=== PATIENT | male | born 1950 | race Caucasian/White ===

== ENCOUNTER 2022-02-03 09:17 | Emergency (ER) | payer MEDICARE, OTHER, SELFPAY ==
[2022-02-03 09:22] VITALS: BP 132/74; PULSE 102; RESP 20; TEMP 37.3; O2SAT 100
--- NOTE | 2022-02-03 09:23 | ED.NAVMDI ---
HPI - Nausea/Vomiting/Diarrhea General Chief complaint: Nausea/Vomiting/Diarrhea Stated complaint: headache aches diarhhea Time Seen by Provider: 02/03/22 09:22 Source: patient and RN notes reviewed History of Present Illness HPI Narrative: Patient is a 71-year-old male who presents the urgent care with complaints of diffuse abdominal discomfort, diarrhea, body aches and headache. Patient states that he was on a cruise and started to have symptoms on Thursday. Patient states that when he returned back from the cruise and his was also symptomatic. Patient states that his symptoms have improved and he is still having 2-3 loose stools a day with taking Imodium. Patient states the pain got worse on Thursday. Denies of any nausea or vomiting. Patient denies any diverticulitis or colitis. States that he has had a low-grade temp since yesterday. Patient has been able to keep down fluids but states he has not tried to eat since Thursday. Patient also reports an increase in urination no other acute complaints. No acute distress noted. Patient aware of the plan of care. Some parts of this dictation were generated by voice recognition software and may contain typographical and/or grammatical inaccuracies. Related Data Home Medications Medication Instructions Recorded Confirmed amlodipine 10 mg tablet 10 mg PO DAILY 02/03/22 02/03/22 finasteride 5 mg tablet 5 mg PO DAILY 02/03/22 02/03/22 pantoprazole 40 mg tablet,delayed 40 mg PO DAILY 02/03/22 02/03/22 release tamsulosin 0.4 mg capsule 0.4 mg PO DAILY 02/03/22 02/03/22 Allergies Allergy/AdvReac Type Severity Reaction Status Date / Time No Known Allergies Allergy Unknown Verified 02/03/22 09:37 Review of Systems Review of Systems: CONSTITUTIONAL: Reports a fever EYES: Denies visual changes, redness, or discharge. ENT: Denies rhinorrhea, congestion, sore throat, or otalgia. CARDIOVASCULAR: Denies chest pain, palpitations, or edema. RESPIRATORY: Denies cough or dyspnea. GASTROINTESTINAL: Reports of diarrhea and diffuse abdominal tenderness/pains GENITOURINARY: Reports of urinary frequency SKIN: Denies rash or itching. MUSCULOSKELETAL: Denies back pain, joint pain. Reports of body aches NEUROLOGIC: Reports of headache All other systems reviewed are negative, except as documented in HPI. PMFSH Comments At the time of my signature, I reviewed and agree with the nursing past medical, surgical, social, and family history. There is no relevant family history pertinent to the patient complaint. Exam Narrative: GENERAL: This is a well-nourished, well-developed patient. Appears fatigued HEAD: normocephalic, atraumatic. EYES: PERRL. Sclera clear/white. Vision is grossly intact. EARS: External ears normal, auditory canals clear and without drainage, TMs normal without perforation. Hearing grossly intact. NOSE: External nose normal with no obvious nasal discharge, nares without redness, no rhinorrhea. THROAT: Mucous membranes moist, posterior pharynx clear. NECK: Neck supple CARDIOVASCULAR: Regular rate and rhythm without murmurs, gallops, or rubs. RESPIRATORY: Clear to auscultation. Breath sounds equal bilaterally. No wheezes, rales, or rhonchi. GASTROINTESTINAL: Abdomen soft, diffuse abdominal tenderness, nondistended. Bowel sounds are hyperactive. No guarding SKIN: warm, intact with no suspicious lesions or rash, good texture and turgor. NEURO: awake, alert, and oriented to person, place and time. There were no obvious focal neurologic abnormalities. EXTREMITIES: No clubbing, cyanosis, or edema. Course Course Level of Care: Express Care Visit Vital Signs Vital signs: Vital Signs Temperature 99.2 F 02/03/22 09:22 Pulse Rate 102 H 02/03/22 09:22 Respiratory Rate 20 02/03/22 09:22 Blood Pressure 132/74 02/03/22 09:22 Pulse Oximetry 100 02/03/22 09:22 Oxygen Delivery Room Air 02/03/22 09:22 Temperature 99.2 F 02/03/22 09:22 Pulse Rate 102 H
== END 2022-02-03 10:10 | disposition short-term general hospital (02) ==
PROVIDERS: Emergency Provider Nurse Practitioner Family; PCP Internal Medicine
DX: R10.9 Unspecified abdominal pain (principal); R19.7 Diarrhea, unspecified; Z20.822 Contact with and (suspected) exposure to COVID-19; I10 Essential (primary) hypertension; K21.9 Gastro-esophageal reflux disease without esophagitis
CPT/HCPCS: 81003; 87077; 87086; 87186; 87426; 99213; C9803; G0463

== ENCOUNTER 2022-07-22 08:02 | Emergency (ER) | payer MEDICARE, OTHER, SELFPAY ==
[2022-07-22 08:08] VITALS: BP 122/77; PULSE 78; RESP 20; TEMP 37.2; O2SAT 100
--- NOTE | 2022-07-22 08:09 | ED.URI ---
HPI - URI/Sore Throat General Chief Complaint: Upper Respiratory Infection Stated Complaint: Chest Congestion/Headache Time Seen by Provider: 07/22/22 08:09 Source: patient, RN notes reviewed and old records reviewed Mode of arrival: ambulatory Limitations: no limitations History of Present Illness HPI Narrative: 72 year old male who presents to express care with complaints of And is congestion and drainage for 11-14 days. Patient has facial pressure, bilateral sinus region discomfort, he has thick sinus drainage, denies any fevers, he does have forehead pain also. Patient has been taking NyQuil, DayQuil, and Coricidin brand decongestant. Patient denies any shortness of breath does have occasional cough which is dry, no tachypnea or any accessory muscle use, SAO2 100% on room air.. MD elicited complaint: cough, rhinorrhea, nasal congestion and sinus pain Pertinent past history: sinusitis Onset (ago): day(s) (11-14) Pain scale (0-10): 2 Treatments prior to arrival: cold medicine and other (Coricidin brand decogestant) Related Data Home Medications Medication Instructions Recorded Confirmed amlodipine 10 mg tablet 10 mg PO DAILY 02/03/22 07/22/22 finasteride 5 mg tablet 5 mg PO DAILY 02/03/22 07/22/22 pantoprazole 40 mg tablet,delayed 40 mg PO DAILY 02/03/22 07/22/22 release tamsulosin 0.4 mg capsule 0.4 mg PO DAILY 02/03/22 07/22/22 Allergies Allergy/AdvReac Type Severity Reaction Status Date / Time No Known Allergies Allergy Unknown Verified 02/03/22 09:37 Review of Systems Review of Systems: CONSTITUTIONAL: Denies malaise, chills, sweats, or fever. EYES: Denies visual changes, redness, or discharge. ENT: Reports rhinorrhea, congestion, sinus pain, otalgia denies sore throat. CARDIOVASCULAR: Denies chest pain, palpitations, or edema. RESPIRATORY: Reports occasional cough.? Denies dyspnea. GASTROINTESTINAL: Denies abdominal pain, nausea, vomiting, diarrhea SKIN: Denies rash or itching. MUSCULOSKELETAL: Denies myalgia. NEUROLOGIC: Reports frontal headache. All systems reviewed & are unremarkable except as noted in HPI and below PMFSH Past Medical History Medical History (Updated 07/22/22 @ 08:38 by Isidra Harvey NP) GERD (gastroesophageal reflux disease) Hypertension Kidney stone Pelvis fracture external fixator (trauma) Surgical History Surgical History (Updated 07/22/22 @ 08:40 by Isidra Harvey NP) H/O right inguinal hernia repair H/O ventral hernia repair Family History Family History (Updated 07/22/22 @ 08:38 by Isidra Harvey NP) Mother Hypertension Heart disease Father Heart disease Social History Social History (Updated 07/22/22 @ 08:26 by Isidra Harvey NP) Alcohol intake: current Substance use type: does not use Gender identity (if verbalized by the patient): Male Comments At time of signature, agree with nursing past medical, surgical, social and family history. There is no relevant family history pertinent to the presenting complaint Exam Narrative: GENERAL: Well-appearing, well-nourished, and in no acute distress. HEAD: Normocephalic EYES: PERRLA, conjunctivae clear ENT: Nares clear, turbinates edematous and erythematous, clear to white discharge. Mucous membranes moist. TM pearly becerril with dull light reflex bilaterally; no tragal tenderness. Oropharynx erythematous without lesions. Tonsils not enlarged and without exudate, no drooling, no hoarseness, no trismus, uvula midline, post nasal drainage. NECK: Supple. No lymphadenopathy CHEST: Clear to auscultation, breath sounds equal. No wheezing, rhonchi, rales, or stridor. No respiratory distress, speaks in full sentences.occasional dry cough,SAO2 100% on room air HEART: Regular rate and rhythm. No murmur heard. SKIN: Warm, dry, no rash. NEURO: Alert and oriented x3. PSYCH: Normal mood and affect Course Course Emergency Course: Patient is aware of diagnosis, und
== END 2022-07-22 08:35 | disposition home or self-care (01) ==
PROVIDERS: Emergency Provider Registered Nurse; PCP Internal Medicine
DX: J01.90 Acute sinusitis, unspecified (principal); K21.9 Gastro-esophageal reflux disease without esophagitis; I10 Essential (primary) hypertension
CPT/HCPCS: 99213; G0463

== ENCOUNTER 2022-11-17 06:59 | Outpatient (CLI) | payer MEDICARE, OTHER, SELFPAY ==
[2022-11-17 07:11] LABS: Basophils Absolute Auto 0.05 K/mm3 (0.00-0.10); Basophils Percent Auto 0.9 % (0.0-1.0); Eosinophils Absolute Auto 0.15 K/mm3 (0.02-0.50); Eosinophils Percent Auto 2.8 % (1.0-6.0); Hematocrit 43.4 % (37.0-46.0); Hemoglobin 14.4 g/dL (12.4-15.3); Immature Granulocyte Absolute 0.01 K/mm3 (0.00-0.00); Immature Granulocyte Percent A 0.2 % (0.0-0.0); Lymphocytes Absolute Auto 1.26 K/mm3 (1.10-4.50); Lymphocytes Percent Auto 23.4 % (18.0-42.0); Mean Corpuscular HGB Conc 33.2 g/dL (32.0-36.0); Mean Corpuscular Hemoglobin 30.6 pg (27.0-31.0); Mean Corpuscular Volume 92.3 fL (78.0-102.0); Mean Platelet Volume 9.6 fl (8.7-11.0); Monocytes Absolute Auto 0.62 K/mm3 (0.10-0.90); Monocytes Percent Auto 11.5 % (2.0-11.0); Neutrophils Absolute Auto 3.3 K/mm3 (1.7-7.2); Neutrophils Percent Auto 61.2 % (50.0-70.0); Platelet Count Result 150 K/mm3 (150-420); Red Cell Distribution Width 14.2 % (11.6-14.4); White Blood Count 5.4 K/mm3 (4.8-10.8)
[2022-11-17 08:33] LABS: Alanine Aminotransferase 31 U/L (16-63); Albumin Level 3.7 g/dL (3.4-5.0); Alkaline Phosphatase 90 U/L (46-116); Anion Gap 6 mmol/L (8-16); Aspartate Amino Transferase 23 U/L (15-37); Bilirubin,Total 0.6 mg/dL (0.00-1.00); Blood Urea Nitrogen 12 mg/dL (7-18); Calcium 8.2 mg/dL (8.5-10.1); Carbon Dioxide 30 mmol/L (21-32); Chloride 103 mmol/L (98-108); Cholesterol 157 mg/dL (0-200); Estimated Glomerular Filt Rate > 60; Free T4 Free Thyroxine 0.96 ng/dL (0.76-1.46); Glucose 115 mg/dL (70-99); HDL Direct 41 mg/dL (40-60); LDL Cholesterol Calculated 86 mg/dL (<130); Osmolality Calculated 288 mOsm/kg (285-295); Potassium 4.2 mmol/L (3.5-5.1); Sodium 139 mmol/L (136-145); Total Protein 6.9 g/dL (6.4-8.2); Triglycerides 151 mg/dL (0-150)
== END 2022-11-17 07:00 | disposition home or self-care (01) ==
LOC: CHSLAB 07:01
PROVIDERS: PCP Internal Medicine; Visit Provider Internal Medicine
DX: I10 Essential (primary) hypertension (principal); E78.5 Hyperlipidemia, unspecified
CPT/HCPCS: 36415; 80053; 80061; 84439; 85025

== ENCOUNTER 2023-07-02 12:07 | Outpatient (CLI) | payer MEDICARE, OTHER, SELFPAY ==
--- NOTE | ~2023-07-02 | XR_ITS ---
EXAMINATION: XR chest 2V 07/02/2023 12:44 INDICATION: Chest tightness PROCEDURE: 2 view chest COMPARISON: 03/19/2019 FINDINGS: The lungs are clear. The cardiomediastinal silhouette is within normal limits. There are no pleural effusions. There is no pneumothorax suspected. IMPRESSION: 1: NO ACUTE CARDIOPULMONARY DISEASE. Reviewed, dictated and finalized at [facility]. 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
--- NOTE | ~2023-07-02 | CT_ITS ---
EXAMINATION: CTA chest PE protocol DATE: 07/02/2023 15:14 INDICATION: Chest pain and shortness of breath. Elevated d-dimer. TECHNIQUE: Computed tomography angiography (CTA) of the chest was performed with 100 mL Omnipaque-350 intravenous contrast timed to evaluate the pulmonary arteries. Coronal maximum intensity projection 3D-reconstructions were created by the technologist. Automated exposure control and iterative reconst ruction technique were employed. Exam dose: 304.69 mGy-cm total exam COMPARISON: 07/02/2023 PA and lateral chest FINDINGS: There is diagnostic contrast enhancement of the pulmonary arteries and no evidence of pulmo nary embolism. No thoracic aortic aneurysm or dissection. Normal heart size. No hilar or mediastinal mass lesion or lymphadenopathy. No pericardial or pleural effusion. Mild bilateral apical pulmonary scarring. Likely chronic interlobular septal thickening and honeycomb ing in the lower anterior right lung affecting middle and lower lobes. There is discoid atelectasis o r scarring at the posterior lung bases, left greater than right. No pulmonary consolidation. Normal morphology of the adrenal glands. 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 IMPRESSION: No evidence of pulmonary embolism Reviewed, dictated and finalized at [facility]. COMPARISON: None. FINDINGS: IMPRESSION: Reviewed, dictated and finalized at [facility]. Reviewed, dictated and finalized at [facility]. 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
[2023-07-02 12:33] LABS: Basophils Absolute Auto 0.06 K/mm3 (0.00-0.10); Basophils Percent Auto 0.8 % (0.0-1.0); Eosinophils Absolute Auto 0.16 K/mm3 (0.02-0.50); Eosinophils Percent Auto 2.1 % (1.0-6.0); Hematocrit 43.7 % (37.0-46.0); Hemoglobin 14.1 g/dL (12.4-15.3); Immature Granulocyte Absolute 0.03 K/mm3 (0.00-0.00); Immature Granulocyte Percent A 0.4 % (0.0-0.0); Lymphocytes Absolute Auto 1.38 K/mm3 (1.10-4.50); Mean Corpuscular HGB Conc 32.3 g/dL (32.0-36.0); Mean Corpuscular Hemoglobin 29.5 pg (27.0-31.0); Mean Corpuscular Volume 91.4 fL (78.0-102.0); Mean Platelet Volume 9.5 fl (8.7-11.0); Monocytes Absolute Auto 0.84 K/mm3 (0.10-0.90); Neutrophils Absolute Auto 5.2 K/mm3 (1.7-7.2); Neutrophils Percent Auto 67.7 % (50.0-70.0); Platelet Count Result 183 K/mm3 (150-420); Red Blood Count 4.78 M/mm3 (4.70-6.10); Red Cell Distribution Width 14.8 % (11.6-14.4); White Blood Count 7.7 K/mm3 (4.8-10.8)
[2023-07-02 12:45] LABS: Appearance Urine Clear (Clear); Bilirubin Urine Negative (Negative); Color Urine Light Yellow (Yellow); Glucose Urine UA Negative (Negative); Ketones Urine Negative (Negative); Leukocyte Esterase Ur Negative (Negative); Nitrate Urine Negative (Negative); Protein Urine Negative (Negative); Specific Grav Ur 1.015 (1.010-1.020)
[2023-07-02 12:51] LABS: Add Urine Microscopic? YES; Bacteria Urine Rare /hpf; Blood Urine Trace-lysed (Negative); RBC Urine 0-2 /hpf (0-2); WBC Urine None seen /hpf (0-3)
[2023-07-02 13:01] LABS: D Dimer 1.03 mg/L (0.19-0.50)
[2023-07-02 13:29] LABS: Alanine Aminotransferase 38 U/L (16-63); Albumin Level 3.7 g/dL (3.4-5.0); Alkaline Phosphatase 67 U/L (46-116); Anion Gap 10 mmol/L (8-16); Aspartate Amino Transferase 25 U/L (15-37); Bilirubin,Total 0.5 mg/dL (0.00-1.00); Blood Urea Nitrogen 15 mg/dL (7-18); Calcium 8.3 mg/dL (8.5-10.1); Carbon Dioxide 27 mmol/L (21-32); Chloride 101 mmol/L (98-108); Cholesterol 180 mg/dL (0-200); Creatine Kinase 257 U/L (39-308); Estimated Glomerular Filt Rate > 60; Glucose 100 mg/dL (70-99); HDL Direct 48 mg/dL (40-60); LDL Cholesterol Calculated 93 mg/dL (<130); NT Pro B Type Natriuretic Pept 98 pg/mL (0-125); Osmolality Calculated 286 mOsm/kg (285-295); Potassium 4.1 mmol/L (3.5-5.1); Prostate Specific Antigen 1.3 ng/mL (< OR = 4.0); Sodium 138 mmol/L (136-145); Total Protein 6.9 g/dL (6.4-8.2); Triglycerides 196 mg/dL (0-150); Troponin I 8.1 ng/L (0.00-60.4)
[2023-07-03 11:59] LABS: CRP 0.5 mg/dL (0.0-0.9)
== END 2023-07-02 12:08 | disposition home or self-care (01) ==
PROVIDERS: PCP Internal Medicine; Visit Provider Internal Medicine
DX: R07.9 Chest pain, unspecified (principal); Z12.5 Encounter for screening for malignant neoplasm of prostate; R79.1 Abnormal coagulation profile; R06.02 Shortness of breath
CPT/HCPCS: 36415; 71046; 71275; 80053; 80061; 81001; 82550; 82553; 83880; 84153; 84484; 85025; 85380; 86140; G0103; Q9967

== ENCOUNTER 2023-07-29 00:27 | Day surgery (SDC) | payer MEDICARE, OTHER, SELFPAY ==
[2023-07-21 09:57] VITALS: BMI 23.9
--- NOTE | 2023-07-27 11:12 | SUR.PREOP ---
Patient called regarding upcoming procedure. Reviewed preop instructions, appointment times, and procedure prep.
--- NOTE | 2023-07-28 13:29 | PM.HPGS ---
History of Present Illness History of Present Illness Consent: Risks, benefits, and alternatives have been discussed and questions answered. Patient agrees to proceed with procedure. Chief complaint: Chest Pain,atypical Narrative: Robert Garcia is a 73 year old male Referred for investigation of atypical chest pain. Review of Systems Review of Systems: All systems reviewed & are unremarkable except as noted in HPI and below PMFSH Past Medical History Medical History GERD (gastroesophageal reflux disease) Hypertension Kidney stone Pelvis fracture external fixator (trauma) Surgical History Surgical History H/O right inguinal hernia repair H/O ventral hernia repair Family History Family History Mother Hypertension Heart disease Father Heart disease Social History Social History Alcohol intake: current Substance use type: does not use Gender identity (if verbalized by the patient): Male Spiritual care concerns: No Meds Home Medications and Allergies Home Medications Medication Instructions Recorded Confirmed Type amlodipine 10 mg tablet 10 mg PO DAILY 02/03/22 07/29/23 History finasteride 5 mg tablet 5 mg PO DAILY 02/03/22 07/29/23 History pantoprazole 40 mg tablet,delayed 40 mg PO DAILY 02/03/22 07/29/23 History release tamsulosin 0.4 mg capsule 0.4 mg PO DAILY 02/03/22 07/29/23 History aspirin 81 mg capsule 81 mg PO DAILY 07/21/23 07/29/23 History Allergies Allergy/AdvReac Type Severity Reaction Status Date / Time No Known Allergies Allergy Unknown Verified 07/29/23 06:59 Exam Const: General: alert Orientation/consciousness: patient oriented x3 Resp: Auscultation: clear to auscultation bilaterally Cardio: Rhythm: regular rhythm GI: GI Palp: Yes Soft to palpation and No Tenderness to palpation present (GI) Neuro: General: patient oriented x3 Assessment and Plan Assessment and plan (1) Chest pain: Code(s): R07.9 - Chest pain, unspecified Status: Acute Assessment and Plan: EGD with possible biopsy or dilatation or cautery.
[2023-07-29 07:02] VITALS: BP 133/74; PULSE 63; RESP 16; TEMP 36.6; O2SAT 100
[2023-07-29] MEDS: LACTATED RINGERS 1,000 ML 150 ML IV CONT (07:14)
--- NOTE | 2023-07-29 07:35 | WPDANESEPPF ---
Anes - Initial Pre Proc Eval Procedure: Operation Date: 07/29/23 08:00 Proposed Procedures p Esophagogastroduodenoscopy - Paul Geiger MD Date/Time: 07/29/23 07:35 Surgeon: Paul Geiger MD Pre Op Diagnosis: Chest Pain,atypical Patient Data Age: 73 Gender: M Height: 1.83 m Weight: 77.9 kg Last Vital Signs Temp 97.8 F 07/29/23 07:02 Pulse 63 07/29/23 07:02 Resp 16 07/29/23 07:02 BP 133/74 07/29/23 07:02 Pulse Ox 100 07/29/23 07:02 O2 Del Method Room Air 07/29/23 07:02 Allergies Allergy/AdvReac Type Severity Reaction Status Date / Time No Known Allergies Allergy Unknown Verified 07/29/23 06:59 Home Medications Medication Instructions Recorded Confirmed Type amlodipine 10 mg tablet 10 mg PO DAILY 02/03/22 07/29/23 History finasteride 5 mg tablet 5 mg PO DAILY 02/03/22 07/29/23 History pantoprazole 40 mg tablet,delayed 40 mg PO DAILY 02/03/22 07/29/23 History release tamsulosin 0.4 mg capsule 0.4 mg PO DAILY 02/03/22 07/29/23 History aspirin 81 mg capsule 81 mg PO DAILY 07/21/23 07/29/23 History Patient hx anesthesia problems: none Family hx anesthesia problems: none Results Review: All pre-operative results and documents have been reviewed as part of the pre-operative evaluation. [facility] Past Medical History Medical History GERD (gastroesophageal reflux disease) Hypertension Kidney stone Pelvis fracture external fixator (trauma) Surgical History Surgical History H/O right inguinal hernia repair H/O ventral hernia repair Family History Family History Mother Hypertension Heart disease Father Heart disease Social History Social History Alcohol intake: current Substance use type: does not use Gender identity (if verbalized by the patient): Male Spiritual care concerns: No Anes - Eval Final PreProcedure Day of Procedure 07/29/23 07:35 Patient weight: normal Heart: regular rate and rhythm Lungs: clear to auscultation Airway: Mallampati scale class II Neurological: alert and oriented Last oral intake: >/= 8 hours ASA classification: II Emergent: no Anesthetic plan: proceed Anesthesia type and monitoring: general GIVS and standard monitoring Results Review: All pre-operative results and documents have been reviewed as part of the pre-operative evaluation. Informed Consent: The patient's anesthetic plan and its attendant risks and benefits were discussed with the patient/family/POA. Questions were solicited and answers provided to the satisfaction of the patient/family/POA.
[2023-07-29] MEDS: SIMETHICONE ORAL SUSPENSION 20 MG/0.3 ML 30 ML BOTTLE 0.6 ML IRRIGATION (07:55)
[2023-07-29 08:00] VITALS: BP 110/68; PULSE 63; RESP 24; O2SAT 99
[2023-07-29 08:10] VITALS: BP 113/74; PULSE 61; RESP 15; O2SAT 98
[2023-07-29 08:20] VITALS: BP 117/74; PULSE 63; RESP 23; O2SAT 100
== END 2023-07-29 08:30 | disposition home or self-care (01) ==
PROVIDERS: PCP Internal Medicine; Visit Provider Internal Medicine Gastroenterology
PROC: 0DJ08ZZ Inspection of Upper Intestinal Tract, Via Natural or Artificial Opening Endoscopic (ICD-10-PCS; CPT 43235; principal; 2023-07-29 08:00)
DX: K21.9 Gastro-esophageal reflux disease without esophagitis (principal); I10 Essential (primary) hypertension; Z79.82 Long term (current) use of aspirin
CPT/HCPCS: 43235; J2704; J7120

== ENCOUNTER 2024-02-21 08:01 | Emergency (ER) | payer MEDICARE, OTHER, SELFPAY ==
[2024-02-21 08:08] VITALS: BP 133/76; PULSE 71; RESP 20; TEMP 36.6; O2SAT 100
--- NOTE | 2024-02-21 08:12 | ED.URI ---
HPI - URI/Sore Throat General Chief Complaint: Upper Respiratory Infection Stated Complaint: cold/right ear Time Seen by Provider: 02/21/24 08:12 Source: patient, RN notes reviewed and old records reviewed Mode of arrival: ambulatory Limitations: no limitations History of Present Illness HPI Narrative: 73 year old male presents to [facility] care with complaints of cough for the past 3 weeks and right ear has been felt clogged with some pain, nasal congestion and drainage. for the past 2-3 weeks. Patient reports that he has taken some DayQuil and NyQuil for his symptoms with no resolution of his symptoms. MD elicited complaint: cough, rhinorrhea, nasal congestion and other (right ear pain) Onset (ago): week(s) (weeks cough ) Severity: moderate Treatments prior to arrival: other (DayQuil and NyQuil) Related Data Home Medications Medication Instructions Recorded Confirmed amlodipine 10 mg tablet 10 mg PO DAILY 02/03/22 07/29/23 finasteride 5 mg tablet 5 mg PO DAILY 02/03/22 07/29/23 pantoprazole 40 mg tablet,delayed 40 mg PO DAILY 02/03/22 07/29/23 release tamsulosin 0.4 mg capsule 0.4 mg PO DAILY 02/03/22 07/29/23 aspirin 81 mg capsule 81 mg PO DAILY 07/21/23 07/29/23 Allergies Allergy/AdvReac Type Severity Reaction Status Date / Time No Known Allergies Allergy Unknown Verified 07/29/23 06:59 Review of Systems Review of Systems: CONSTITUTIONAL: Denies malaise, chills, sweats, or fever. EYES: Denies visual changes, redness, or discharge. ENT: Reports rhinorrhea, congestion,no sinus pain,right otalgia and no sore throat. CARDIOVASCULAR: Denies chest pain, palpitations, or edema. RESPIRATORY: Reports persistent cough.? Denies dyspnea. GASTROINTESTINAL: Denies abdominal pain, nausea, vomiting, diarrhea SKIN: Denies rash or itching. MUSCULOSKELETAL: Denies myalgia. NEUROLOGIC: Denies headache. All systems reviewed & are unremarkable except as noted in HPI and below PMFSH Past Medical History Medical History BPH (benign prostatic hyperplasia) GERD (gastroesophageal reflux disease) Hypertension Kidney stone Pelvis fracture external fixator (trauma) Surgical History Surgical History H/O right inguinal hernia repair H/O ventral hernia repair Family History Family History Mother Hypertension Heart disease Father Heart disease Social History Social History Alcohol intake: current Substance use type: does not use Gender identity (if verbalized by the patient): Male Spiritual care concerns: No Comments At time of signature, agree with nursing past medical, surgical, social and family history. There is no relevant family history pertinent to the presenting complaint Exam Narrative: GENERAL: Well-appearing, well-nourished, and in no acute distress. HEAD: Normocephalic EYES: PERRLA, conjunctivae clear ENT: Nares clear, turbinates edematous and erythematous, clear discharge. Mucous membranes moist. Right TM red and bulging, Left TM pearly becerril with dull light reflex ; no tragal tenderness. Oropharynx erythematous without lesions. Tonsils not enlarged and without exudate, no drooling, no hoarseness, no trismus, uvula midline. NECK: Supple. No lymphadenopathy CHEST: Clear to auscultation, breath sounds equal. No wheezing, rhonchi, rales, or stridor. No respiratory distress, speaks in full sentences.dry cough SAO2 100% on room air HEART: Regular rate and rhythm. No murmur heard. SKIN: Warm, dry, no rash. NEURO: Alert and oriented x3. PSYCH: Normal mood and affect Course Course Emergency Course: Patient is aware of diagnosis, understands and agrees to treatment plan.? Anticipatory guidance given.? Patient agrees to follow-up as directed and i
== END 2024-02-21 08:37 | disposition home or self-care (01) ==
PROVIDERS: Emergency Provider Registered Nurse; PCP Internal Medicine
DX: R05.3 Chronic cough (principal); H65.01 Acute serous otitis media, right ear; N40.0 Benign prostatic hyperplasia without lower urinary tract symptoms; K21.9 Gastro-esophageal reflux disease without esophagitis; I10 Essential (primary) hypertension; Z79.82 Long term (current) use of aspirin
CPT/HCPCS: 99213; G0463

== ENCOUNTER 2024-11-23 09:44 | Outpatient (CLI) | payer MEDICARE, OTHER, SELFPAY ==
[2024-11-23 10:22] LABS: Basophils Absolute Auto 0.04 K/mm3 (0.00-0.10); Basophils Percent Auto 0.6 % (0.0-1.0); Eosinophils Absolute Auto 0.13 K/mm3 (0.02-0.50); Hematocrit 45.4 % (37.0-46.0); Hemoglobin 14.9 g/dL (12.4-15.3); Immature Granulocyte Absolute 0.02 K/mm3 (0.00-0.00); Immature Granulocyte Percent A 0.3 % (0.0-0.0); Lymphocytes Absolute Auto 1.62 K/mm3 (1.10-4.50); Lymphocytes Percent Auto 25.4 % (18.0-42.0); Mean Corpuscular HGB Conc 32.8 g/dL (32-36); Mean Corpuscular Volume 91.3 fL (78.0-102.0); Mean Platelet Volume 9.2 fl (8.7-11.0); Monocytes Absolute Auto 0.78 K/mm3 (0.10-0.90); Monocytes Percent Auto 12.2 % (2.0-11.0); Neutrophils Absolute Auto 3.78 K/mm3 (1.70-7.20); Neutrophils Percent Auto 59.5 % (50.0-70.0); Platelet Count Result 189 K/mm3 (150-420); Red Blood Count 4.97 M/mm3 (4.70-6.10); Red Cell Distribution Width 14.8 % (11.6-14.4); White Blood Count 6.4 K/mm3 (4.8-10.8)
[2024-11-23 10:38] LABS: INR 0.9; Partial Thromboplastin Time 25.5 Sec (23.9-30.70); Prothrombin Time 10.2 Seconds (9.50-12.1)
--- OUTSIDE RECORDS SUMMARY | 2024-11-23 10:52 | XMS_ITS | Referral Summary ---
Author Organization [facility] Address [address] [place] [phone] Care Team Providers Care Tack Cleaner Name Role Phone Darnell Bolden MD Primary Care Provider [phone] Encounters Date Type Department Care Team Description 09/05/2024 8:00 AM CDT Office Visit [facility] [address] [place] [address] [place] [phone] Reza Kessler MD Rotator cuff impingement syndrome of left shoulder (Primary Dx); Rotator cuff impingement syndrome of right shoulder; Primary osteoarthritis of both elbows from Last 3 Months Allergies No known active allergies Medications finasteride (PROSCAR) 5 mg tablet 1 tablet (5 mg total) Active tamsulosin (FLOMAX) 0.4 mg extended release capsule 1 capsule (0.4 mg total) Active sildenafiL (VIAGRA) 50 mg tablet 1 tablet (50 mg total) Active pantoprazole DR (PROTONIX) 40 mg EC tablet 9 Active amoxicillin (AMOXIL) 875 mg tablet TK 1 T PO BID 0 9 Active amoxicillin-clav ulanate (AUGMENTIN) 875-125 mg per tablet TK 1 T PO BID 0 9 Active aspirin 81 mg enteric coated tablet Take 1 tablet (81 mg total) by mouth Active bisacodyl (DULCOLAX) 10 mg suppository Insert 1 suppository (10 mg total) into the rectum 9 Active calcium carbonate-vitami n D3 1,250mg (500mg elemental) - 5 mcg (200 units) per tablet Take 1 tablet by mouth 9 Active multivitamin with minerals tablet Take 1 tablet by mouth 9 Active acetaminophen (TYLENOL) 500 mg tablet Take 2 tablets (1,000 mg total) by mouth 9 Active simethicone (MYLICON) 80 mg chewable tablet Take 1 tablet (80 mg total) by mouth 4 times daily 9 Active amLODIPine (NORVASC) 10 mg tablet 1 Active HYDROcodone-acet aminophen (NORCO) 5-325 mg per tabletIndication s:Pain Take 1 tablet by mouth every 6 (six) hours as needed for pain 14 tablet 2 Active Additional Information Patient not taking.Reported on 09/05/2024 tamsulosin (FLOMAX) 0.4 mg extended release capsuleIndicatio ns:Urolithiasis Take 1 capsule (0.4 mg total) by mouth daily 7 capsule 2 Active Additional Information Patient not taking.Reported on 09/05/2024 Active Problems Problem Noted Date Diagnosed Date Personal history of colonic polyps 08/21/2021 Overview (08/21/2021): Added automatically from request for surgery [id number] Encounter for screening colonoscopy 08/21/2021 Overview (08/21/2021): Added automatically from request for surgery [id number] Rotator cuff impingement syndrome of left should er 11/09/2019 Olecranon bursitis of left elbow 09/24/2018 Assessment & Plan (09/24/2018 1:58 PM CDT): The patient has olecranon bursitis of his left elbow. At the disc current a does not look like an infectious process. We cleaned the area well with alcohol wipes and chlorhexidine. I was able to get an aspirate 10 cc of thin watery him blood- tinged fluid. The bursitis completely resolved after removing the needle. I then injected the area with 40 mg of Depo-Medrol 1 cc 1% lidocaine without epinephrine to keep the inflammatory response down. We talked about the keeping an eye on how he is resting the elbow sometimes that can play a factor in causation. It may just be to the fact that he had had bumped the elbow he has some underlying arthritis to cause the swelling. We see him on a regular basis for his elbow arthritis and shoulder. 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 [employer] Gender Identity Not on file Sexual Orientation Not on file Last Filed Vital Signs Vital Sign Reading Time Taken Comments Blood Pressure 137/66 02/03/2022 3:15 PM CDT Pulse 72 02/03/2022 3:15 PM CDT Temperature 38.3 C (100.9 F) 02/03/2022 10:59 AM CDT Respiratory Rate 22 02/03/2022 3:15 PM CDT Oxygen Saturation 100% 02/03/2022 3:15 PM CDT Inhaled Oxygen Concentration - - Weight 78 kg (172 lb) 09/05/2024 7:51 AM CDT Height 182.9 cm (6') 09/05/2024 7:51 AM CDT Body Mass Index 23.33 09/05/2024 7:51 AM CDT Plan of Treatment Not on file Procedures Procedure Name Priority Date/Time Associated Diagnosis Comments [place] ARTHROCENTESIS ASPIR&/INJ INTERM JT/BURS W/O US Routine 09/05/2024 8:00 AM CDT Primary osteoarthritis of both elbows NJ ARTHROCENTESIS ASPIR&/INJ MAJOR JT/BURSA W/O US Routine 09/05/2024 8:00 AM CDT Rotator cuff impingement syndrome of left shoulder Rotator cuff impingement syndrome of right shoulder CT ABDOMEN PELVIS WO CONTRAST ED 02/03/2022 2:35 PM CDT COLONOSCOPY 11/19/2021 9:25 AM CDT from Last 3 Months or Most Recently Relevant to Health Maintenance Results * NJ ARTHROCENTESIS ASPIR&/INJ INTERM JT/BURS W/O US (09/05/2024 8:00 AM CDT) Reza Murguia MD - 09/05/2024 8:00 AM CDT Reza Kessler MD 09/05/2024 8:24 AM Medium Joint (Ankle, Elbow, Shoulder (AC), Wrist) Injection: bilateral lateral epicondyle Performed by: Reza Kessler MD Authorized by: Reza Kessler MD Medium Joint Injection/Aspiration: Consent Given by: Patient Timeout: prior to procedure the correct patient, procedure, and site was verified Verbal consent obtained?: Yes Written consent obtained?: No Supporting Documentation: Indications: Pain Procedure Details: Location: Elbow Site: Bilateral lateral epicondyle Prep: patient was prepped using a clean technique Medications Right Medium Joint Injection: 1 mL lidocaine 10 mg/mL (1 %); 40 mg triamcinolone 40 mg/mL Medications Left Medium Joint Inection: 1 mL lidocaine 10 mg/mL (1 %); 40 mg triamcinolone 40 mg/mL Patient tolerance: Patient tolerated the procedure well with no immediate complications Reza Kessler MD [facility] Final Result * NJ ARTHROCENTESIS ASPIR&/INJ MAJOR JT/BURSA W/O US (09/05/2024 8:00 AM CDT) Reza Murguia MD - 09/05/2024 8:00 AM CDT Reza Kessler MD 09/05/2024 8:24 AM Large Joint (Hip, Knee, Shoulder) Injection: bilateral glenohumeral Performed by: Reza Kessler MD Authorized by: Reza Kessler MD Large Joint Injection/Aspiration: Consent Given by: Patient Site marked: the procedure site was marked Timeout: prior to procedure the correct patient, procedure, and site was verified Verbal consent obtained: Yes Written consent obtained: No Supporting Documentation: Indications: Pain Procedure Details: Location: Shoulder Site: Bilateral glenohumeral Prep: patient was prepped using a clean technique Needle Size: 22 G Ultrasound guided: No Medications Right Large Joint Injection: 1 mL lidocaine 10 mg/mL (1 %); 40 mg triamcinolone 40 mg/mL Medications Left Large Joint Injection: 1 mL lidocaine 10 mg/mL (1 %); 40 mg triamcinolone 40 mg/mL Patient tolerance: Patient tolerated the procedure well with no immediate complications us Reza Kessler MD [facility] Final Result * CT Abdomen Pelvis WO Contrast (02/03/2022 2:35 PM CDT) Anatomical Region Laterality Modality Body N/A Computed Tomogra phy 02/03/2022 3:16 PM CDT Narrative 02/03/2022 3:34 PM CDT EXAM DESCRIPTION: CT ABDOMEN PELVIS WO CONTRAST REASON FOR STUDY: LLQ abdominal pain, diverticulitis suspected, Abdominal pain Pt started having mid abdomen pain, diarrhea, and vomiting on Thursday. Pt had been on a cruise. Hx of surgery for tractor accident and penile implant. TECHNIQUE: CT scan of the abdomen and pelvis performed without intravenous and without oral contrast using helical scanning technique. Reconstructed coronal and sagittal MPR images reviewed. All images stored on PACS. Automated exposure control was used as a dose optimization technique for this examination. COMPARISON: None FINDINGS: The sensitivity for detection of visceral lesions is diminished without the use of intravenous contrast. LOWER CHEST: No significant pulmonary abnormalities. Trace bilateral pleural effusions. LIVER: Normal size. No identified cystic or solid masses. GALLBLADDER: No stones identified. No wall thickening or inflammatory changes. BILE DUCTS: No intrahepatic or extrahepatic ductal dilatation. SPLEEN: Normal size. No focal lesions. PANCREAS: No identified cystic or solid masses. No significant calcifications. No adjacent inflammation or peripancreatic fluid collections. Pancreatic duct not dilated. ADRENALS: Normal. KIDNEYS/URINARY TRACT: There is moderate left hydronephrosis and hydroureter due to a 5 mm obstructing stone at the left ureterovesical junction. There is inflammatory stranding in the left perinephric and periureteral fat. There are multiple nonobstructing bilateral renal stones. Urinary bladder is unremarkable. GI: No dilated bowel loops. No obvious wall thickening. Normal appendix. Scattered diverticular disease without diverticulitis. PERITONEUM: No ascites or free air. RETROPERITONEUM: No mass or adenopathy. REPRODUCTIVE: Enlarged prostate measuring 5.7 cm x 5.2 cm x 4.9 cm. VASCULATURE: No abdominal aortic aneurysm. MUSCULOSKELETAL: No significant abnormality. Surgical screw traverses the left sacroiliac joint. OTHER: No other abnormality. Penile prosthesis. Small bilateral inguinal hernias containing only fat. IMPRESSION: 1. Moderate left hydronephrosis and hydroureter due to a 5 mm obstructing stone at the left ureterovesical junction. 2. Multiple nonobstructing bilateral renal stones. 3. Diverticulosis. No evidence of diverticulitis. 4. Enlarged prostate. 5. Trace bilateral pleural effusions. REFERENCE: Unless otherwise specified, no follow-up imaging is recommended for incidental renal and adrenal lesions per consensus recommendations based on imaging criteria. Further lab evaluation could be pursued based on clinical findings. Management of the Incidental Renal Mass on CT: A White Paper of the ACR Incidental Findings Committee. J Am Fang Radiol. 2018 Jul;15(2):264-273. Management of Incidental Adrenal Masses: A White Paper of the ACR Incidental Findings Committee. J Am Fang Radiol. 2017 Jan;14(8):9749-6387. THIS IS AN ELECTRONICALLY VERIFIED FINAL REPORT 02/03/2022 3:34 PM - Electronically signed by Octavio Casarez M.D. KT: CHARLIE Report ID: [id number] Reading Location: [place] [address] Procedure Note Octavio Casarez MD - 02/03/2022 EXAM DESCRIPTION: CT ABDOMEN PELVIS WO CONTRAST REASON FOR STUDY: LLQ abdominal pain, diverticulitis suspected,Abdominal pain Pt started having mid abdomen pain, diarrhea, and vomiting on Thursday.Pt had been on a cruise. Hx of surgery for tractor accident and penileimplant. TECHNIQUE: CT scan of the abdomen and pelvis performed without intravenousand without oral contrast using helical scanning technique. Reconstructed coronal and sagittal MPR images reviewed. All images stored on PACS. Automated exposure control was used as a dose optimization technique forthis examination. COMPARISON: None FINDINGS: The sensitivity for detection of visceral lesions is diminished withoutthe use of intravenous contrast. LOWER CHEST: No significant pulmonary abnormalities. Trace bilateral pleural effusions. LIVER: Normal size. No identified cystic or solid masses. GALLBLADDER: No stones identified. No wall thickening or inflammatory changes. BILE DUCTS: No intrahepatic or extrahepatic ductal dilatation. SPLEEN: Normal size. No focal lesions. PANCREAS: No identified cystic or solid masses. No significant calcifications. No adjacent inflammation or peripancreatic fluidcollections. Pancreatic duct not dilated. ADRENALS: Normal. KIDNEYS/URINARY TRACT: There is moderate left hydronephrosis andhydroureter due to a 5 mm obstructing stone at the left ureterovesical junction.There is inflammatory stranding in the left perinephric and periureteral fat.There are multiple nonobstructing bilateral renal stones. Urinary bladder is unremarkable. GI: No dilated bowel loops. No obvious wall thickening. Normal appendix. Scattered diverticular disease without diverticulitis. PERITONEUM: No ascites or free air. RETROPERITONEUM: No mass or adenopathy. REPRODUCTIVE: Enlarged prostate measuring 5.7 cm x 5.2 cm x 4.9 cm. VASCULATURE: No abdominal aortic aneurysm. MUSCULOSKELETAL: No significant abnormality. Surgical screw traversesthe left sacroiliac joint. OTHER: No other abnormality. Penile prosthesis. Small bilateralinguinal hernias containing only fat. IMPRESSION: 1. Moderate left hydronephrosis and hydroureter due to a 5 mmobstructing stone at the left ureterovesical junction. 2. Multiple nonobstructing bilateral renal stones. 3. Diverticulosis. No evidence of diverticulitis. 4. Enlarged prostate. 5. Trace bilateral pleural effusions. REFERENCE: Unless otherwise specified, no follow-up imaging is recommendedfor incidental renal and adrenal lesions per consensus recommendations basedon imaging criteria. Further lab evaluation could be pursued based onclinical findings. Management of the Incidental Renal Mass on CT: A White Paper of the ACR Incidental Findings Committee. J Am Fang Radiol. 2018 Jul;15(2):264-273. Management of Incidental Adrenal Masses: A White Paper of the ACRIncidental Findings Committee. J Am Fang Radiol. 2017 Jan;14(8):4482-7345. THIS IS AN ELECTRONICALLY VERIFIED FINAL REPORT 02/03/2022 3:34 PM - Electronically signed by Octavio Casarez M.D. KT: CHARLIE Report ID: [id number] Reading Location: [id number] Damari Patiño MD IMG CT PROCEDURES F inal Result * COLONOSCOPY (11/19/2021 9:25 AM CDT) Anatomical Region Laterality Modality Other Narrative Procedure Note Francisco Dias MD - 11/19/2021 9:25 AM CDT [facility] Patient Name: Robert Garcia Procedure Date: 11/19/2021 9:25 AM Date of : 1950 Admit Type: Outpatient Age: 71 Gender: Male Attending MD: Francisco Dias M.D. Room: [facility] ENDOSCOPY ROOM 1 Note Status: Finalized Patient Profile: This is a 71 year old male. No family history ofcolon cancer. Last colonoscopy noted with hyperplastic polyps per Procedure: Colonoscopy Indications: Screening for colorectal malignant neoplasm, Last colonoscopy: November 2014 Referring MD: Darnell Bolden M.D. Providers: Francisco Dias M.D. Impression: - One 5 mm polyp in the transverse colon, removedwith a jumbo cold forceps. Resected and retrieved. - Diverticulosis in the sigmoid colon. - Internal hemorrhoids. Recommendation: - Repeat colonoscopy in 5-7years for screening purposes. - Await pathology results. - Continue present medications. Medicines: Monitored Anesthesia Care Complications: No immediate complications. Estimated Blood Loss: Estimated blood loss: none. Procedure: Pre-Anesthesia Assessment: - Prior to the procedure, a History and Physicalwas performed, and patient medications and allergieswere reviewed. The patient's tolerance of previous anesthesia was also reviewed. The risks andbenefits of the procedure and the sedation options and risks were discussed with the patient. All questions were answered, and informed consent was obtained. Prior Anticoagulants: The patient has taken noanticoagulant or antiplatelet agents. ASA Grade Assessment: III -A patient with severe systemic disease. Afterreviewing the risks and benefits, the patient was deemed in satisfactory condition to undergo the procedure. The benefits, risks and alternatives of theprocedure and sedation were discussed and informed consentwas obtained. All questions were answered. Please referto the signed informed consent document in the medical record. The bowel preparation used was Miralax and bisacodyl tablets via split dose instruction. The scope was passed under direct vision. The Pediatric Colonoscope [id number]-[id number] was introducedthrough the anus and advanced to the the cecum, identifiedby appendiceal orifice and ileocecal valve. Thequality of the bowel preparation was good. Bowel prep was administered using a split dose. Findings: The perianal and digital rectal examinations were normal. The cecum appeared normal. The descending colon and ascending colon appeared normal. A 5 mm polyp was found in the transverse colon. The polyp was semi-sessile. The polyp was removed with a jumbo cold forceps.Resection and retrieval were complete. Scattered small-mouthed diverticula were found in the sigmoidcolon. Internal hemorrhoids were found during retroflexion. The hemorrhoids were medium-sized. Electronically signed by Francisco Dias M.D. Francisco Dias M.D. 11/19/2021 11:24:55 AM Number of Addenda: 0 Note Initiated On: 11/19/2021 9:25 AM Procedure Code(s): --- Professional --- 05182, Colonoscopy, flexible; with biopsy, single or multiple Diagnosis Code(s): --- Professional --- Z12.11, Encounter for screening for malignant neoplasm of colon K64.8, Other hemorrhoids D12.3, Benign neoplasm of transverse colon (hepatic flexure orsplenic flexure) K57.30, Diverticulosis of large intestine without perforation orabscess without bleeding CPT copyright 2020 [employer]. All rights reserved. The codes documented in this report are preliminary and upon software support technician reviewmay be revised to meet current compliance requirements. Recognized by the [place] [employer] for promoting quality in endoscopy Francisco Dias MD ENDOSCOPY PROCEDURES Final Result from Last 3 Months or Most Recently Relevant to Health Maintenance Insurance MEDICARE [facility] Address: [facility] [address] [place] [address] [employer] MEDICARE FOR LIFE Advance Directives For more information, please contact: [phone] * Full Code (Latest Code Status on File) Date Activated Date Inactivated Comments 11/19/2021 9:19 AM 11/19/2021 4:13 PM Care Teams Tack Cleaner Relationship Specialty Start Date End Date Darnell Bolden MD [address] [place] [address] PCP - General Internal Medicine 09/24/18
--- OUTSIDE RECORDS SUMMARY | 2024-11-23 10:52 | XMS_ITS | Clinical Summary ---
Author Organization [facility] [place] [facility] [place] Address [address] [place] [phone] Care Team Providers Care Blow Molding Machine Tender Name Role Phone Darnell Bolden MD Primary Care Provider [phone]- [phone] Allergies No known active allergies Medications finasteride [...] (08/21/2021): Added automatically from request for surgery [id number] Encounter for screening colonoscopy 08/21/2021 Overview (08/21/2021): Added automatically from request for surgery [id number] Rotator cuff impingement syndrome of left should [...] return Primary osteoarthritis of both elbows 12/05/2016 Encounters Date Type Department Care Team Description 09/05/2024 8:00 AM CDT Office Visit [facility] Orth[facility]ics and Sports Medicine [address] [place] [phone] Reza Kessler MD Rotator cuff impingement syndrome of left shoulder (Primary Dx); Rotator cuff impingement syndrome of right shoulder; Primary osteoarthritis of both elbows from Last 3 Months Surgical History Surgery Date Site/Laterality Comments COLONOSCOPY 12/05/2014 Medical History Medical History Date Comments Hypertension Family History Medical History Relation Name Comments Heart disease Father Relation Name Status Comments Father Social History Tobacco Use Types Packs/Day Years Used Date Smoking Tobacco: Never Smokeless Tobacco: Never Alcohol Use Standard Drinks/Week Comments Yes 0 (1 standard drink = 0.6 oz pur e alcohol) occasional Sex and Gender Information Value Date Recorded Sex Assigned at Not on file 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 Gender Identity Not on file Sexual Orientation Not on file Obstetrics History Last Filed Vital Signs Vital Sign Reading [...] 09/05/2024 7:51 AM CDT Plan of Treatment Health Maintenance Due Date Last Done Comments Depression Screening 1950 Fall Risk Assessment 1950 Hepatitis C Screening 1950 Hepatitis B Screening 1970 Well Visit 65+ 2017 Zoster Vaccine (3 of 3) 07/10/2021 05/15/2021, 06/02 DTaP/Tdap/Td Vaccine (2 - Td or Tdap) 12/17/2022 12/17/2012 Covid-19 Vaccine (2023-2 5 season) 2024 03/11/2021, 08/14/2020, 07/22/2020 Influenza Vaccine (Season Ended) 2025 03/11/2021, 03/22/2020, 03/08/2020, Additional history exists Colon Cancer Screening-Colonoscopy 11/20/2031 11/19/2021, 12/05/2014, 12/05/2014 Pneumococcal vaccine 65+ Completed 06/04/2018, 05/15 Colon Cancer Screening-CT Colonography Discontinued 11/19/2021, 12/05/2014, 12/05/2014 Colon Cancer Screening-DNA Stool Discontinued 11/19/2021, 12/05/2014, 12/05/2014 Colon Cancer Screening-FIT Discontinued 11/19, 12/05/2014, 12/05/2014 Colon Cancer Screening-Sigmoidoscopy Discontinued 11/19/2021, 12/05/2014, 12/05/2014 Abdominal Aortic Aneurysm (A AA) Screen Completed 11/05/2023, 02/06/2022, 02/03/2022, Additional history exists Procedures Procedure Name Priority Date/Time Associated Diagnosis Comments AK ARTHROCENTESIS ASPIR&/INJ INTERM JT/BURS W/O US Routine 09/05/2024 8:00 AM CDT Primary osteoarthritis of both elbows AK ARTHROCENTESIS ASPIR&/INJ MAJOR JT/BURSA W/O US Routine 09/05/2024 8:00 AM CDT Rotator cuff impingement syndrome of left shoulder Rotator cuff impingement syndrome of right shoulder CT ABDOMEN PELVIS WO CONTRAST ED 02/03/2022 2:35 PM CDT COLONOSCOPY 11/19/2021 9:25 AM CDT from Last 3 Months or Most Recently Relevant to Health Maintenance Results * AK ARTHROCENTESIS ASPIR&/INJ INTERM JT/BURS W/O US (09/05/2024 8:00 AM CDT) Narrative Reza Kessler MD - 09/05/2024 8:00 AM CDT Reza [...] IN CLINIC/BEDSIDE TOSIN GATES Final Result * AK ARTHROCENTESIS ASPIR&/INJ MAJOR JT/BURSA W/O US (09/05/2024 8:00 AM CDT) Narrative Reza Kessler MD - 09/05/2024 8:00 AM CDT Reza [...] Findings Committee. J Am Fang Radiol. 2017 Jan;14(8):3220-8948. THIS IS AN ELECTRONICALLY VERIFIED FINAL REPORT 02/03/2022 3:34 PM - Electronically signed by Octavio Casarez M.D. KT: CHARLIE Report ID: [id number] Reading Location: [id number] Procedure Note Octavio Casarez MD - 02/03/2022 [...] Findings Committee. J Am Fang Radiol. 2017 Jan;14(8):3242-6105. THIS IS AN ELECTRONICALLY VERIFIED FINAL REPORT 02/03/2022 3:34 PM - Electronically signed by Octavio Casarez M.D. KT: CHARLIE Report ID: [id number] Reading Location: [id number] Damari Patiño MD IMG CT PROCEDURES F inal Result * COLONOSCOPY (11/19/2021 9:25 AM CDT) Anatomical Region Laterality Modality Other Narrative Procedure Note Francisco Dias MD - 11/19/2021 9:25 AM CDT [facility] Patient Name: Robert Garcia Procedure Date: 11/19/2021 9:25 AM Date of : 1950 Admit Type: Outpatient Age: 71 Gender: Male Attending MD: Francisco Dias M.D. [facility] 1 Note Status: Finalized Patient [...] under direct vision. The Pediatric Colonoscope PCF-H190L [id number] was introducedthrough the anus and advanced to [...] 9:25 AM Procedure Code(s): --- Professional --- 32845, Colonoscopy, flexible; with biopsy, single or multiple Diagnosis Code(s): --- Professional --- Z12.11, Encounter for screening for malignant neoplasm of colon K64.8, Other hemorrhoids D12.3, Benign neoplasm of transverse colon (hepatic flexure orsplenic flexure) K57.30, Diverticulosis of large intestine without perforation orabscess without bleeding CPT copyright 2020 [employer]. All rights reserved. The codes documented in this report are preliminary and upon death surveys coder reviewmay be revised to meet current compliance requirements. Recognized by the [place] [employer] for promoting quality in endoscopy Francisco Dias MD ENDOSCOPY PROCEDURES Final Result from Last 3 Months or Most Recently Relevant to Health Maintenance Insurance MEDICARE [place] MEDICARE FOR LIFE Advance Directives For more information, please contact: [phone] * Full Code (Latest Code Status on File) Date Activated Date Inactivated Comments 11/19/2021 9:19 AM 11/19/2021 4:13 PM Care Teams Blow Molding Machine Tender Relationship Specialty Start Date End Date Darnell Bolden MD [address] [place] [address] PCP - General Internal Medicine 09/24/18
[2024-11-23 11:07] LABS: Alanine Aminotransferase 25 U/L (6-50); Albumin Level 4.6 g/dL (3.5-5.1); Alkaline Phosphatase 73 U/L (38-126); Anion Gap 5 mmol/L (4-12); Aspartate Amino Transferase 31 U/L (17-59); Bilirubin,Total 0.5 mg/dL (0.2-1.3); Blood Urea Nitrogen 14 mg/dL (9-20); Carbon Dioxide 29 mmol/L (22-30); Chloride 107 mmol/L (98-107); Estimated Glomerular Filt Rate > 60; Glucose 91 mg/dL (65-110); Osmolality Calculated 292 mOsm/kg (285-295); Potassium 5.1 mmol/L (3.4-5.0); Sodium 141 mmol/L (137-145); Total Protein 6.7 g/dL (6.3-8.2)
== END 2024-11-23 09:45 | disposition home or self-care (01) ==
LOC: CHSLAB 09:46
PROVIDERS: PCP Internal Medicine; Visit Provider Internal Medicine
DX: I10 Essential (primary) hypertension (principal); D68.9 Coagulation defect, unspecified
CPT/HCPCS: 36415; 80053; 84443; 85025; 85610; 85730

== ENCOUNTER 2025-02-17 12:29 | Emergency (ER) | payer MEDICARE, OTHER, SELFPAY ==
--- OUTSIDE RECORDS SUMMARY | 2025-02-17 12:37 | XMS_ITS | Clinical Summary ---
Author Organization [facility] [place] [facility] [place] Address [address] [place] [phone] Care Team Providers Care Security Escort Name Role Phone Darnell Bolden MD Primary Care Provider [phone]- [phone] Allergies No known active allergies Medications finasteride [...] (08/21/2021): Added automatically from request for surgery [id number] Encounter for screening colonoscopy 08/21/2021 Overview (08/21/2021): Added automatically from request for surgery [id number] Rotator cuff impingement syndrome of left should [...] return Primary osteoarthritis of both elbows 12/05/2016 Surgical History Surgery Date Site/Laterality Comments COLONOSCOPY [...] on file 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 J Am Fang Radiol. 2017 Jan;14(8):6597-6870. THIS IS AN ELECTRONICALLY VERIFIED FINAL REPORT 02/03/2022 3:34 PM - Electronically signed by Octavio Casarez M.D. KT: CHARLIE Report ID: [id number] Reading Location: [place] [address] Procedure Note Octavio Casarez MD - 02/03/2022 [...] Findings Committee. J Am Fang Radiol. 2017 Jan;14(8):1480-2189. THIS IS AN ELECTRONICALLY VERIFIED FINAL REPORT 02/03/2022 3:34 PM - Electronically signed by Octavio Casarez M.D. KT: CHARLIE Report ID: [id number] Reading Location: [id number] Damari Patiño MD IMG CT PROCEDURES F inal Result * COLONOSCOPY (11/19/2021 9:25 AM CDT) Anatomical Region Laterality Modality Other Narrative Procedure Note Francisco Dias MD - 11/19/2021 9:25 AM CDT [facility] Patient Name: Robert Garcia Procedure Date: 11/19/2021 9:25 AM Date of : 1950 Admit Type: Outpatient Age: 71 Gender: Male Attending MD: Francisco Dias M.D. Room: [facility] ENDOSCOPY ROOM 1 Note Status: Finalized Patient [...] under direct vision. The Pediatric Colonoscope PCF-H190L [id number] was introducedthrough the anus and advanced to [...] 9:25 AM Procedure Code(s): --- Professional --- 49212, Colonoscopy, flexible; with biopsy, single or multiple Diagnosis Code(s): --- Professional --- Z12.11, Encounter for screening for malignant neoplasm of colon K64.8, Other hemorrhoids D12.3, Benign neoplasm of transverse colon (hepatic flexure orsplenic flexure) K57.30, Diverticulosis of large intestine without perforation orabscess without bleeding CPT copyright 2020 [place]. All rights reserved. The codes documented in this report are preliminary and upon agricultural researcher reviewmay be revised to meet current compliance requirements. Recognized by the [place] [employer] for promoting quality in endoscopy Francisco Dias MD ENDOSCOPY PROCEDURES Final Result from Last 3 Months or Most Recently Relevant to Health Maintenance Insurance MEDICARE FOR LIFE MEDICARE FOR LIFE Advance Directives For more information, please contact: [phone] * Full Code (Latest Code Status on File) Date Activated Date Inactivated Comments 11/19/2021 9:19 AM 11/19/2021 4:13 PM Care Teams Security Escort Relationship Specialty Start Date End Date Darnell Bolden MD [address] [place] [address] PCP - General Internal Medicine 09/24/18
--- OUTSIDE RECORDS SUMMARY | 2025-02-17 12:37 | XMS_ITS | Clinical Summary ---
Author Organization [facility] Address [address] [place] [address] Care Team Providers Care Grassroots Organizer Name Role Phone Darnell Bolden MD Unavailable [phone] Noam Quispe MD Primary Care Provider [phone] Source Comments [facility],non-owned Affiliates and Associated Physician Practices is amultiple site organization consisting of ambulatory clinics and hospital sitesin [place], [place], [place] and [place]. This disclosure is being madepursuant to the Care Everywhere program and may not contain all information available regarding this patient. Last updated 18.[facility] Allergies No known active allergies Medications * Be aware that medications may not be up to date on this document. Alwaysverify current medications with the patient. pantoprazole EC (PROTONIX) 40 MG tablet Take 1 (one) tablet by mouth once daily Active finasteride (PROSCAR) 5 MG tablet Take 1 (one) tablet by mouth once daily Active amLODIPine (Norvasc) 10 MG tablet Take 1 (one) tablet by mouth once daily 3 Active tamsulosin (Flomax) 0.4 MG capsule Take 1 (one) capsule by mouth once daily as needed (To help pass kidnye stone) 20 capsule 4 Active oxyCODONE, immediate release, (Roxicodone) 5 MG tabletIndicati ons:Nephrolith iasis Take 1 (one) tablet by mouth every 6 hours as needed for Pain 8 tablet 4 Active Additional Information Patient not taking.Reported on 02/29/2024 acetaminophen (Tylenol) 325 MG tablet Take 2 (two) tablets by mouth every 6 hours as needed for Fever or Pain Maximum allowable Acetaminophen amount = 4 Grams (4000 mg) / 24 hours. 4 Active Additional Information Patient not taking.Reason: Patient adjusted, Reported on 09/27/2024 potassium citrate (Urocit K 10) 10 MEQ (1080 MG) tablet Take 2 (two) tablets by mouth 3 times daily with meals 540 tablet 3 5 09/28/19 26 Active Active Problems Problem Noted Date Diagnosed Date Nephrolithiasis 02/06/2022 Right flank pain 02/06/2022 Urinary tract infection without hematuria 2021 Impotence due to erectile dysfunction 04/16/2020 Urethral injury 12/06/2018 Closed fracture of transverse process of lumbar vertebra 12/06/2018 Acute blood loss anemia 12/06/2018 Impaired mobility and activities of daily living 12/06/2018 Multiple rib fractures 12/06/2018 Sacral fracture 12/06/2018 Traumatic abdominal hernia 12/01/2018 Accident caused by farm tractor Multiple closed pelvic fract ures with disruption of pelvic afognak 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 Monthly or less 02/06/2022 Q2: How many drinks containi ng alcohol do you have on a typical day when you are drinking? 1 or 2 02/06/2022 Q3: How often do you have si x or more drinks on one occasion? Never 02/06/2022 Hunger Vital Sign Answer Date Recorded Within the past 12 months, y ou worried that your food would run out before you got the money to buy more. Never true 02/08/20 22 Within the past 12 months, t he food you bought just didn't last and you didn't have money to get more. Never true 02/07/2022 Sex and Gender Information Value Date Recorded Sex Assigned at Not on file Legal Sex Male 11:18 AM CDT Gender Identity Not on file Sexual Orientation Not on file Last Filed Vital Signs Vital Sign Reading Time Taken Comments Blood Pressure 123/80 09/27/2024 9:49 AM CDT Pulse 70 09/27/2024 9:49 AM CDT Temperature 36.8 C (98.3 F) 09/27/2024 9:49 AM CDT Respiratory Rate 18 09/27/2024 9:49 AM CDT Oxygen Saturation 98% 09/27/2024 9: 49 AM CDT Inhaled Oxygen Concentration 21% 04/16/2020 1 :20 PM SOCIAL SERVICE AGENCY DIRECTOR Weight 77.9 kg (171 lb 12.8 oz) 09/27/2024 9:49 AM CDT Height 182.9 cm (6') 09/27/2024 9:49 AM CDT Body Mass Index 23.3 09/27/2024 9:49 AM CDT Plan of Treatment Upcoming Encounters Date Type Department Care Team (Late st Contact Info) Description 03/28/2025 8:30 AM CDT Office Visit [facility] - Urology [address] [place] [phone] Carlos Ellis MD [address] [address] [place] [phone] Health Maintenance Due Date Last Done Comments COLOGUARD (AGES 45-75) - COLON CA SCREENING 1950 CT COLONOGRAPHY - COLON CA SCREENING 1950 FIT - COLON CA SCREENING 1950 FLEX SIG - COLON CA SCREENING 1950 LIPID TESTING 1950 MEDICARE AWV 12 MONTHS 1950 HEPATITIS C SCREENING 03/12/1970 DTAP/TDAP/TD VACCINES (1 - Tdap) 1971 PNEUMOCOCCAL VACCINE 50+ (1 of 1 - PCV) 2002 ZOSTER VACCINE (1 of 2) 2002 Respiratory Syncytial Virus (RSV) Vaccine Pt: or over 60 yrs (1 - Risk 60-74 years 1-dose series) 2012 COVID-19 VACCINE ( season) 2024 12/29/2021, 03/11/2021, 08/14/2020, Additional history exists DEPRESSION SCREENING 06/15/2024 INFLUENZA VACCINE (#1) 2025 , 03/22/2020, 03/08/2020, Additional history exists COLON MONITORING 11/20/2031 11/19/2021 COLONOSCOPY - COLON CA SCREENING 11/20/2031 11/19/2021 Colorectal Cancer Screening 11/20/2031 HEPATITIS B VACCINE Aged Out No longe r eligible based on patient's age to complete this topic HIB VACCINE Aged Out No longer eligi ble based on patient's age to complete this topic HPV VACCINE Aged Out No longer eligi ble based on patient's age to complete this topic MENINGOCOCCAL (Group B) VACCINE SHARED DECISION-MAKING Aged Out No longer eligible based on patient's age to complete this topic MENINGOCOCCAL GROUPS A/C/Y/W VACCINE Aged Out No longer eligible based on patient's age to complete this topic Medical Devices Implanted Type Area Control Clerk Repairs Device Identifier Shelf Expiration Date Model / Serial / Lot Mesh Srg Phasix Sepra 8x6in Rect Mfl Implanted:Qty: 1 on 12/01/2018 by Bryon Nelson DO at [facility] [employer] 09/09/2020 [id number] / / [id number] Wire K 2mm 350mm Thrd Troc Pnt 1 End Ss Implanted:Qty: 1 on 12/01/2018 by Casey Lizarraga DO at [facility] Pelvis [employer] [id number] / / Screw 8mm 95mm Lg P/T Lopro Sm Bone Lng Implanted:Qty: 1 on 12/01/2018 by Casey Lizarraga DO at [facility] Pelvis [employer] [id number] / / Wshr Rnd Orth 12.7mm Implanted:Qty: 1 on 12/01/2018 by Casey Lizarraga DO at [facility] Pelvis [employer] [id number] / / Kit Acc Ams 700 Penl Pros Implanted:Qty: 1 on 04/16/2020 by Basil Andre MD at [facility] N/A: Penis [employer] 03/18/2025 [id number] / / [id number] Description:apart of total Pros Penl Ams 700 Ms Diesel Service Apprentice Ams Conceal Implanted:Qty: 1 on 04/16/2020 by Basil Andre MD at [facility] N/A: Penis [employer] 02/06/2022 [id number] / / [id number] Description:apart of total Pros Penl Ams Spctr 1.5cm 12mm 14mm Mlbl Implanted:Qty: 1 on 04/16/2020 by Basil Andre MD at [facility] N/A: Penis [employer] 01/04/2024 [id number] / / [id number] Pros Penl Ams Spctr 1cm 12mm 14mm Mlbl Implanted:Qty: 1 on 04/16/2020 by Basil Andre MD at [facility] N/A: Penis [employer] 05/24/2024 [id number] / / [id number] Pros Penl Ams 700 Ms Diesel Service Apprentice 18cm Infl Implanted:Qty: 1 on 04/16/2020 by Basil Andre MD at [facility] N/A: Penis [employer] 03/24/2022 [id number] / / [id number] Stent Uret 6fr 28cm Sft Tria Implanted:Qty: 1 on 03/03/2022 by Basil Andre MD at [facility] Left: Ureter [employer] 11/26/2024 [id number] / / [id number] Stent Uret 6fr 28cm Sft Tria Implanted:Qty: 1 on 12/30/2023 by Carlos Ellis MD at [facility] Right: Ureter [employer] 09/21/2026 [id number] / / [id number] Insurance MEDICARE * Guarantor: ODILIA GARCIARY Account Type Relation to Patient Date of Phone Billing Address Personal/Family 1950 [place] [address] Advance Directives * Full Code (Latest Code Status on File) Date Activated Date Inactivated Comments 02/06/2022 2:34 PM 02/07/2022 2:39 PM * Full Code Date Activated Date Inactivated Comments 04/16/2020 1:52 PM 04/17/2020 11:44 AM * Full Code Date Activated Date Inactivated Comments 05/30/2019 5:10 PM 05/31/2019 1:28 PM * Full Code Date Activated Date Inactivated Comments 05/30/2019 6:07 AM 05/30/2019 5:05 PM * Full Code Date Activated Date Inactivated Comments 04/06/2019 8:04 AM 04/06/2019 3:09 PM Care Teams Grassroots Organizer Relationship Specialty Start Date End Date Noam Quispe MD [address] [place] [address] PCP - General Internal Medicine 11/05/23 Darnell Bolden MD [address] [place] [address] Internal Medicine 12/06/18
--- OUTSIDE RECORDS SUMMARY | 2025-02-17 12:37 | XMS_ITS | Encounter Summary ---
Author Organization [facility] Address [address] [place] [address] Phone Care Team Providers Care Mail List Librarian Name Role Phone Darnell Bolden MD Primary Care Provider [phone] Reason for Visit * Reason Comments Medication Refill Encounter Details Date Type Department Care Team (Late st Contact Info) Description 05/29/2020 Refill [facility] - Internal Medicine - [place] [address] [place] [address] Darnell Bolden MD [address] [place] [address] Medication Refill Social History Tobacco Use Types Packs/Day Years Used Date Smoking Tobacco: Never Assessed PHQ-2 Answer Date Recorded Total Score - Questions 1-9 0 05/15 Sex and Gender Information Value Date Recorded Sex Assigned at Not on file Legal Sex Male 9:37 PM CDT Gender Identity Not on file Sexual Orientation Not on file COVID-19 Exposure Response Date Recorded In the last month, have you been in contact with someone who was confirmed or suspected to have Coronavirus / COVID-19? No / Unsure 06/01/2020 8:39 AM LIFE INSURANCE SPECIALIST documented as of this encounter Miscellaneous Notes * Telephone Encounter - Jodie Orellana RN - 05/29/2020 8:15 AM CST Please review and sign. INSURANCE SPECIALIST documented in this encounter Plan of Treatment Not on file documented as of this encounter Visit Diagnoses Not on filedocumented in this encounter Care Teams Mail List Librarian Relationship Specialty Start Date End Date Darnell Bolden MD PCP - General Internal Medicine 05/28/20 documented as of this encounter
--- OUTSIDE RECORDS SUMMARY | 2025-02-17 12:37 | XMS_ITS | Clinical Summary ---
Author Organization [facility] Address [address] [place] [address] Phone Care Team Providers Care Machine Specialist Name Role Phone Darnell Bolden MD Primary Care Provider [phone] Medications Wvcezn-FaWog-Tp Txvs-NN-Kmejg (MULTIVITAMIN/M INERALS PO) Take 1 Tab by mouth. 12/06/2018 Active Millis-3 Fatty Acids (FISH OIL PO) Take by mouth. Active aspirin 325 MG Tablet Take 325 mg by mouth daily. Active amLODIPine (NORVASC) 10 MG Tablet Take 1 Tablet by mouth daily. 90 Tablet 1 11/28/2021 Active finasteride (PROSCAR) 5 MG Tablet Take 1 Tablet by mouth daily. 90 Tablet 1 11/28/2021 Active pantoprazole (PROTONIX) 40 MG Tablet Delayed Response Take 1 Tablet by mouth daily. 90 Tablet 1 11/28/2021 Active tamsulosin (FLOMAX) 0.4 MG Capsule Take 1 Capsule by mouth daily. 90 Capsule 1 11/28/2021 Active Active Problems Problem Noted Date Diagnosed Date Left thyroid nodule 05/30/2021 Overview (05/30/2021): Repeat ultrasound in 1 year BPH with obstruction/lower urinary tract symptom s 06/01/2020 Essential hypertension, benign 12/23/2010 Hyperlipidemia 12/23/2010 GERD without esophagitis 12/23/2010 Resolved Problems Problem Noted Date Diagnosed Date Resolved Date Thrombocytopenia 06/01/2020 05/30/2021 Immunizations Immunization Administration Dates Next Due Covid-19, Mrna, Lnp-s, Pf, 3 0 Mcg/0.3 Ml Dose (Pfizer) 03/11/2021,08/14/2020,07/22/2020 Influenza Vaccine 03/22/2020,03/29/2019,04/06/20 16 Influenza Vaccine greater than 3 yrs 03/08/2020 Influenza, High-dose, Quadrivalent 03/11/2021 Influenza, Injectable, Quadrivalent 04/09/2015 Influenza, high-dose, trivalent, PF 03/11/2021 Pneumococcal Vaccine - 13 Valent 06/04/2018 Pneumococcal Vaccine Adult - 23 Valent 8 TDAP Vaccine 12/17/2012 Zoster Vaccine Recombinant 05/15/2021 Zoster Vaccine, live 06/02/2014 Family History Relation Name Status Comments Brother Alive Father Mother Social History Tobacco Use Types Packs/Day Years Used Date Smoking Tobacco: Never Smokeless Tobacco: Never Alcohol Use Standard Drinks/Week Comments Yes 0 (1 standard drink = 0.6 oz pur e alcohol) PHQ-2 Answer Date Recorded Total Score - Questions 1-9 0 11/13 Sexually Active Control Partners Comments Yes Sex and Gender Information Value Date Recorded Sex Assigned at Not on file Legal Sex Male 9:37 PM CDT Gender Identity Not on file Sexual Orientation Not on file Last Filed Vital Signs Vital Sign Reading Time Taken Comments Blood Pressure 126/72 11/28/2021 8:35 AM CDT Pulse 68 11/28/2021 8:35 AM CDT Temperature 36.5 C (97.7 F) 11/28/2021 8:35 AM CDT Respiratory Rate - - Oxygen Saturation 98% 11/28/2021 8:35 AM CDT Inhaled Oxygen Concentration - - Weight 78 kg (172 lb) 11/28/2021 8:35 AM CDT Height 182.9 cm (6') 11/28/2021 8:35 AM CDT Body Mass Index 23.33 11/28/2021 8:35 AM CDT Plan of Treatment Health Maintenance Due Date Last Done Comments Hepatitis C Virus (HCV) Screening 1950 Cologuard 1997 Immunochemical Fecal Occult Blood 1997 Zoster Immunization (3 of 3) 07/10/2021 05/15/2021, 06/02/2014 Influenza Immunization (#1) 02/13/20252 12/2020, 03/11/2021, 03/22/2020, Additional history exists SARS-COV-2 Immunization ( season) 2025 03/11/2021, 08/14/2020, 07/22/2020 Respiratory Syncytial Virus (RSV) Immunization (Adult) (1 - 1-dose 75+ series) 2027 Colonoscopy 11/20/2031 11/19/2021, 12/05/2014 Colorectal Cancer Screening 11/20/2031 DTaP/Tdap/Td Immunization Discontinued 12/17/2012 Pneumococcal Immunization (50+ years) Completed 06/04/2018, 05/25/2018 Pneumococcal Immunization Combined Discontinued 06/04/2018, 05/25/2018 PSA Discussion Discontinued 12/21/2020 Hepatitis B Immunization Aged Out No longer eligible based on patient's age to complete this topic Human Papillomavirus (HPV) Immunization Aged Out No longer eligible based on patient's age to complete this topic Meningococcal Immunization (ACWY) Aged Out No longer eligible based on patient's age to complete this topic Rotavirus Immunization Aged Out No lo nger eligible based on patient's age to complete this topic Procedures Procedure Name Priority Date/Time Associated Diagnosis Comments PSA SCREEN Routine 12/21/2020 Screening for prostate cancer COLONOSCOPY Routine 12/05/2014 from Last 3 Months or Most Recently Relevant to Health Maintenance Results * PSA SCREEN (12/21/2020) PSA (PROSTATE SPECIFIC ANTIGEN) 0.7 ng/mL Blood 12/21/2020 us Darnell Bolden MD CHEMISTRY ORDERABLES Final Result * COLONOSCOPY (12/05/2014) us Darnell Bolden MD PROCEDURE/MINOR SURGICAL OR DERABLES Final Result from Last 3 Months or Most Recently Relevant to Health Maintenance Insurance MEDICARE [facility] Care Teams Machine Specialist Relationship Specialty Start Date End Date Darnell Bolden MD PCP - General Internal Medicine 05/28/20
[2025-02-17 12:40] VITALS: BP 131/75; PULSE 74; RESP 18; TEMP 36.9; O2SAT 99
[2025-02-17 12:51] LABS: EDSTREPNEGPOS1 Negative (Negative)
--- NOTE | 2025-02-17 12:59 | ED.URI ---
HPI - URI/Sore Throat General Chief Complaint: Upper Respiratory Infection Stated Complaint: Headache/Vomiting Time Seen by Provider: 02/17/25 12:59 Source: patient Mode of arrival: ambulatory Limitations: no limitations History of Present Illness HPI Narrative: 74 yo F presents with c/o sinus congestion, pressure, PND worse for the past 3 days but has been having sinus issues for over 2 wks. Taking OTC pseudoephedrine. Waking up in middle of night coughing and spitting up drainage. Having hard time falling asleep for sinus pressure. Afebrile. Granddaughter has strep throat. Has mild throat pain. Afebrile. All systems reviewed and negative except as noted above. Related Data Home Medications ?Medication ?Instructions ?Recorded ?Confirmed ?Last Taken ?Type amlodipine 10 mg tablet 10 mg PO DAILY 02/03/22 07/29/23 07/29/23 05:00 History finasteride 5 mg tablet 5 mg PO DAILY 02/03/22 07/29/23 07/29/23 05:00 History pantoprazole 40 mg tablet,delayed 40 mg PO DAILY 02/03/22 07/29/23 07/29/23 05:00 History release tamsulosin 0.4 mg capsule 0.4 mg PO DAILY 02/03/22 07/29/23 07/28/23 History aspirin 81 mg capsule 81 mg PO DAILY 07/21/23 07/29/23 07/29/23 05:00 History Allergies Allergy/AdvReac Type Severity Reaction Status Date / Time No Known Allergies Allergy Unknown Verified 02/17/25 12:31 [facility] Past Medical History Medical History BPH (benign prostatic hyperplasia) GERD (gastroesophageal reflux disease) Hypertension Kidney stone Pelvis fracture external fixator (trauma) Surgical History Surgical History H/O right inguinal hernia repair H/O ventral hernia repair Family History Family History Mother Hypertension Heart disease Father Heart disease Social History Social History Alcohol intake: current Substance use type: does not use Gender identity (if verbalized by the patient): Male Spiritual care concerns: No Comments At time of signature, agree with nursing past medical, surgical, social and family history. There is no relevant family history pertinent to the presenting complaint. Exam Narrative: GENERAL: This is a well-nourished, well-developed patient, Ill-appearing but in no acute distress HEAD: normocephalic, atraumatic. EYES: PERRL. Sclera clear/white. Vision is grossly intact. EARS: External ears normal, auditory canals clear and without drainage, TMs normal without perforation. Hearing grossly intact. NOSE: External nose normal with Purulent nasal drainage, erythema and swelling to bilateral nares. Bilateral maxillary sinus tenderness on palpation. THROAT: Mucous membranes moist, erythema with postnasal drainage. No swelling or exudates NECK: Neck supple, non-tender without lymphadenopathy, masses or thyromegaly. CARDIOVASCULAR: Regular rate and rhythm without murmurs, gallops, or rubs. RESPIRATORY: Clear to auscultation. Breath sounds equal bilaterally. No wheezes, rales, or rhonchi. SKIN: warm, Dry, intact with no suspicious lesions or rash, good texture and turgor. NEURO: awake, alert, and oriented to person, place and time. There were no obvious focal neurologic abnormalities. EXTREMITIES: No joint tenderness, effusion, or edema noted. Course Course Level of Care: Express Care Visit Vital Signs Vital signs: Vital Signs Temperature 36.9 C 02/17/25 12:40 Pulse Rate 74 02/17/25 12:40 Respiratory Rate 18 02/17/25 12:40 Blood Pressure 131/75 02/17/25 12:40 Pulse Oximetry 99 02/17/25 12:40 Oxygen Delivery Room Air 02/17/25 12:40 Temperature 36.9 C 02/17/25 12:40 Pulse Rate 74 02/17/25 12:40 Respiratory Rate 18 02/17/25 12:40 Blood Pressure 131/75 02/17/25 12:40 Pulse Oximetry 99 02/17/25 12:40 Oxygen Delivery Room Air 02/17/25 12:40 reviewed MDM - URI/Sore Throat MDM Narrative Medical decision making narrative: negative COVID, influenza and strep. Will treat patient for bacterial sinusitis due to duration of symptoms and exam findings. Patient is alert, nontoxic. Differential Diagnosis Differential diagnosis: Likely upper respiratory infection, sinusitis, viral infection, pharyngitis and other ( COVID) Lab Data Labs: Lab Results 02/17/25 Range/Units 12:49 POC Grp A Strep Screen Negative (Negative) Discharge Plan Discharge Clinical Impression: Acute bacterial sinusitis Patient Disposition: Home Condition: Stable Instructions: Antibiotic Form, Sinusitis (ED) Additional Instructions: your COVID, influenza and strep test was negative today. Take antibiotic as prescribed until gone. Continue bebq-cdy-wiwcrlu pseudoephedrine. Take as directed on packaging. Drink at least 64 oz water a day. See your doctor symptoms are not improving. Patient Language: [place] Islander Prescriptions: New amoxicillin-pot clavulanate 875-125 mg tablet 1 tablet PO Q12H 7 Days Qty: 14 0RF No Action tamsulosin 0.4 mg capsule 0.4 mg PO DAILY amlodipine 10 mg tablet 10 mg PO DAILY pantoprazole 40 mg tablet,delayed release (DR/EC) 40 mg PO DAILY finasteride 5 mg tablet 5 mg PO DAILY aspirin 81 mg Capsule 81 mg PO DAILY Follow-up/Referrals: Noam Quispe MD [Primary Care Provider, Internal Medicine] Time of Disposition: 13:04
[2025-02-17 13:02] LABS: EDCOVIDSCREEN Negative (Negative); EDINFLUASCREEN Negative (Negative); EDINFLUBSCREEN Negative (Negative)
== END 2025-02-17 13:08 | disposition home or self-care (01) ==
PROVIDERS: Emergency Provider Nurse Practitioner Family; PCP Internal Medicine
DX: J01.90 Acute sinusitis, unspecified (principal); Z20.822 Contact with and (suspected) exposure to COVID-19; N40.0 Benign prostatic hyperplasia without lower urinary tract symptoms; I10 Essential (primary) hypertension; K21.9 Gastro-esophageal reflux disease without esophagitis
CPT/HCPCS: 87426; 87804; 87880; 99213; G0463

== ENCOUNTER 2025-02-26 11:19 | Emergency (ER) | payer MEDICARE, OTHER, SELFPAY ==
--- OUTSIDE RECORDS SUMMARY | 2025-02-26 11:21 | XMS_ITS | Clinical Summary ---
Author Organization [facility] [employer] Address [address] [place] [address] Care Team Providers Care Edge Trimmer Mechanic Name Role Phone Darnell Bolden MD Unavailable [phone] Noam Quispe MD Primary Care Provider [phone] Source Comments [facility],non-owned Affiliates and Associated Physician Practices is amultiple site organization consisting of ambulatory clinics and hospital sitesin [place], [place], [place] and [place]. This disclosure is being madepursuant to the Care Everywhere program and may not contain all information available regarding this patient. 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 Weight 77.9 kg (171 lb 12.8 oz) 09/27/2024 9:49 AM CDT Height 182.9 cm (6') 09/27/2024 9:49 AM CDT Body Mass Index 23.3 09/27/2024 9:49 AM CDT Plan of Treatment Upcoming Encounters Date Type Department Care Team (Late st Contact Info) Description 03/28/2025 8:30 AM CDT Office Visit [facility] - [facility] [address] [place] [id number] Carlos Ellis MD [address] [place] [phone] Health Maintenance Due Date Last Done Comments [...] - Risk 60-74 years 1-dose series) 2012 DEPRESSION SCREENING 06/15/2024 COVID-19 VACCINE (2024- season) 2025 12/29/2021, 03/11/2021, 08/14/2020, Additional history exists INFLUENZA VACCINE (#1) 2025 , 03/22/2020, 03/08/2020, [...] this topic Medical Devices Implanted Type Area Production Potter Device Identifier Shelf Expiration Date Model / Serial / Lot Mesh Srg Phasix Sepra 8x6in Rect Mfl Implanted:Qty: 1 on 12/01/2018 by Bryon Nelson DO at [facility] [employer] 09/09/2020 [id number] / / [id number] Wire K 2mm 350mm Thrd Troc Pnt 1 End Ss Implanted:Qty: 1 on 12/01/2018 by Casey Lizarraga DO at [facility] Pelvis [employer] [id number] / / Screw 8mm 95mm Lg P/T Lopro Sm Bone Lng Implanted:Qty: 1 on 12/01/2018 by Casey Lizarraga DO at [facility] Pelvis [employer] [id number] / / Wshr Rnd Orth 12.7mm Implanted:Qty: 1 on 12/01/2018 by Casey Lizarraga DO at [facility] Pelvis [employer] [id number] / / Kit Acc Ams 700 Penl Pros Implanted:Qty: 1 on 04/16/2020 by Basil Andre MD at [facility] N/A: Penis [employer] 03/18/2025 [id number] / / [id number] Description:apart of total Pros Penl Ams 700 Ms Dozer Operator Ams Conceal Implanted:Qty: 1 on 04/16/2020 by Basil Andre MD at [facility] N/A: Penis [employer] 02/06/2022 [id number] / / [id number] Description:apart of total Pros Penl Ams Spctr 1.5cm 12mm 14mm Mlbl Implanted:Qty: 1 on 04/16/2020 by Basil Andre MD at [facility] N/A: Penis [employer] 01/04/2024 [id number] / / [id number] Pros Penl Ams Spctr 1cm 12mm 14mm Mlbl Implanted:Qty: 1 on 04/16/2020 by Basil Andre MD at [facility] N/A: Penis [employer] 05/24/2024 [id number] / / [id number] Pros Penl Ams 700 Ms Dozer Operator 18cm Infl Implanted:Qty: 1 on 04/16/2020 by Basil Andre MD at [facility] N/A: Penis [employer] 03/24/2022 [id number] / / [id number] Stent Uret 6fr 28cm Sft Tria Implanted:Qty: 1 on 03/03/2022 by Basil Andre MD at [facility] Left: Ureter [employer] 11/26/2024 [id number] / / [id number] Stent Uret 6fr 28cm Sft Tria Implanted:Qty: 1 on 12/30/2023 by Carlos Ellis MD at [facility] Right: Ureter [employer] 09/21/2026 [id number] / / [id number] Insurance MEDICARE * Guarantor: NEO [employer]AR[employer] Account Type Relation to Patient Date of Phone Billing Address Personal/Family [address] [place] [address] Advance Directives * Full Code (Latest Code [...] 8:04 AM 04/06/2019 3:09 PM Care Teams Edge Trimmer Mechanic Relationship Specialty Start Date End Date Noam Qusipe MD [address] [place] [address] PCP - General Internal Medicine 11/05/23 Darnell Bolden MD [address] [place] [address] Internal Medicine 12/06/18
--- OUTSIDE RECORDS SUMMARY | 2025-02-26 11:21 | XMS_ITS | Clinical Summary ---
Author Organization [facility] Address [address] [place] [address] Phone Care Team Providers Care Oil Rag Washer Name Role Phone Darnell Bolden MD Primary Care Provider [phone] Medications Kuyivr-QvQcv-We Odfk-EP-Mgflz (MULTIVITAMIN/M INERALS PO) Take 1 Tab by mouth. 12/06/2018 Active Gilead-3 Fatty Acids (FISH OIL PO) Take by [...] Recently Relevant to Health Maintenance Insurance MEDICARE [facility] Care Teams Oil Rag Washer Relationship Specialty Start Date End Date Darnell Bolden MD PCP - General Internal Medicine 05/28/20
--- OUTSIDE RECORDS SUMMARY | 2025-02-26 11:21 | XMS_ITS | Clinical Summary ---
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 J Am Fang Radiol. 2017 Jan;14(8):4264-8325. THIS IS AN ELECTRONICALLY VERIFIED FINAL REPORT 02/03/2022 3:34 PM - Electronically signed by Octavio Casarez M.D. KT: CHARLIE Report ID: [id number] Reading Location: [place] [address] Procedure Note Octavio Casarez MD - 02/03/2022 [...] Findings Committee. J Am Fang Radiol. 2017 Jan;14(8):4338-3601. THIS IS AN ELECTRONICALLY VERIFIED FINAL REPORT 02/03/2022 3:34 PM - Electronically signed by Octavio Casarez M.D. KT: CHARLIE Report ID: [id number] Reading Location: [id number] us Damari Patiño MD IMG CT PROCEDURES F inal Result * COLONOSCOPY (11/19/2021 9:25 AM CDT) Anatomical Region Laterality Modality Other Narrative Procedure Note Francisco Dias MD - 11/19/2021 9:25 AM CDT [facility] Patient Name: Robert Garcia Procedure Date: 11/19/2021 9:25 AM Date of : 1950 Admit Type: Outpatient Age: 71 Gender: Male Attending MD: Francisco Dias M.D. Room: [facility] ENDOSCOPY ROOM 1 Note Status: Finalized Patient [...] under direct vision. The Pediatric Colonoscope [id number] was introducedthrough the anus and advanced to [...] 9:25 AM Procedure Code(s): --- Professional --- 00997, Colonoscopy, flexible; with biopsy, single or multiple Diagnosis Code(s): --- Professional --- Z12.11, Encounter for screening for malignant neoplasm of colon K64.8, Other hemorrhoids D12.3, Benign neoplasm of transverse colon (hepatic flexure orsplenic flexure) K57.30, Diverticulosis of large intestine without perforation orabscess without bleeding CPT copyright 2020 [employer]. All rights reserved. The codes documented in this report are preliminary and upon range rider reviewmay be revised to meet current compliance requirements. Recognized by the [place] [employer] for promoting quality in endoscopy Francisco Dias MD ENDOSCOPY PROCEDURES Final Result from Last 3 Months or Most Recently Relevant to Health Maintenance Insurance MEDICARE FOR LIFE MEDICARE FOR LIFE Advance Directives For more information, please contact: [phone] * Full Code (Latest Code Status on File) Date Activated Date Inactivated Comments 11/19/2021 9:19 AM 11/19/2021 4:13 PM Care Teams Paleologist Relationship Specialty Start Date End Date Darnell Bolden MD [address] [place] [address] PCP - General Internal Medicine 09/24/18
[2025-02-26 11:23] VITALS: BP 139/86; PULSE 70; RESP 20; TEMP 36.6; O2SAT 100
--- NOTE | 2025-02-26 11:35 | ED.EAR ---
HPI - Ear Problem General Chief complaint: Ear Stated complaint: ear ache Time Seen by Provider: 02/26/25 11:27 Source: patient, RN notes reviewed and old records reviewed Mode of arrival: ambulatory Limitations: no limitations History of Present Illness HPI Narrative: Patient presents today complaining of a 2-3 day history of right ear pain with intermittent muffled hearing. Currently rates his pain 4/10 and has tried no OTC treatment prior to arrival. Patient finished a course of Augmentin 2 days ago for sinusitis. States those symptoms have fully resolved. Related Data Home Medications ?Medication ?Instructions ?Recorded ?Confirmed ?Last Taken ?Type amlodipine 10 mg tablet 10 mg PO DAILY 02/03/22 07/29/23 07/29/23 05:00 History finasteride 5 mg tablet 5 mg PO DAILY 02/03/22 07/29/23 07/29/23 05:00 History pantoprazole 40 mg tablet,delayed 40 mg PO DAILY 02/03/22 07/29/23 07/29/23 05:00 History release tamsulosin 0.4 mg capsule 0.4 mg PO DAILY 02/03/22 07/29/23 07/28/23 History Allergies Allergy/AdvReac Type Severity Reaction Status Date / Time No Known Allergies Allergy Unknown Verified 02/26/25 11:26 [facility] Past Medical History Medical History BPH (benign prostatic hyperplasia) Pelvis fracture external fixator (trauma) Hypertension GERD (gastroesophageal reflux disease) Kidney stone Surgical History Surgical History H/O ventral hernia repair H/O right inguinal hernia repair Family History Family History Mother Hypertension Heart disease Father Heart disease Social History Social History Alcohol intake: current Substance use type: does not use Gender identity (if verbalized by the patient): Male Spiritual care concerns: No Comments At time of signature, I have reviewed and agree with nursing past medical, surgical, social and family history unless otherwise noted. Please see nursing chart for further information. There is no relevant family history pertinent to the presenting complaint Exam Narrative: GENERAL: Well-appearing, well-nourished, and in no acute distress. HEAD: Normocephalic, atraumatic. EYES: EOMI. No redness or drainage. Conjunctivae normal. ENT: Mucous membranes pink and moist. Nares clear. No rhinorrhea. Left TM normal. Right TM with moderate middle ear effusion without evidence of bacterial infection. NECK: Normal AROM. Supple. No lymphadenopathy. CHEST: No respiratory distress. EXTREMITIES: Normal range of motion. No edema. SKIN: Warm, dry, no rash. Capillary refill normal. Normal skin turgor. NEURO: No focal deficits. Alert and oriented x3. Gait steady. PSYCH: Normal affect. No signs of depression or anxiety. Course Course Level of Care: Express Care Visit Vital Signs Vital signs: Vital Signs Temperature 97.9 F 02/26/25 11:23 Pulse Rate 70 02/26/25 11:23 Respiratory Rate 02/26/25 11:23 Blood Pressure 139/86 02/26/25 11:23 Pulse Oximetry 100 02/26/25 11:23 Oxygen Delivery Room Air 02/26/25 11:23 Temperature 97.9 F 02/26/25 11:23 Pulse Rate 70 02/26/25 11:23 Respiratory Rate 02/26/25 11:23 Blood Pressure 139/86 02/26/25 11:23 Pulse Oximetry 100 02/26/25 11:23 Oxygen Delivery Room Air 02/26/25 11:23 Reviewed Medical Decision Making MDM Narrative Medical decision making narrative: 74 yo male patient presents today complaining of 2-3 day history of right ear pain and intermittent muffling. Two days ago patient finished course of Augmentin for sinusitis and states the symptoms have fully resolved. OTC treatment prior arrival. Upon exam, patient's right TM has moderate serous effusion without evidence of bacterial infection. Left TM normal. Recommend starting an intranasal steroid such as Flonase. Will also give a small prednisone burst. Vital signs stable. Patient agrees with plan. Anticipatory guidance given. Differential Diagnosis Differential Diagnosis: otitis media, otitis externa, ruptured TM, serous otitis, cerumen impaction Vital Signs Vital Signs: Vital Signs Temperature 97.9 F 02/26/25 11:23 Pulse Rate 70 02/26/25 11:23 Respiratory Rate 02/26/25 11:23 Blood Pressure 139/86 02/26/25 11:23 Pulse Oximetry 100 02/26/25 11:23 Oxygen Delivery Room Air 02/26/25 11:23 Temperature 97.9 F 02/26/25 11:23 Pulse Rate 70 02/26/25 11:23 Respiratory Rate 20 02/26/25 11:23 Blood Pressure 139/86 02/26/25 11:23 Pulse Oximetry 100 02/26/25 11:23 Oxygen Delivery Room Air 02/26/25 11:23 Critical Care Time Critical Care Time Critical Care Time: No Discharge Plan Discharge Clinical Impression: Acute serous otitis media of right ear Qualifiers: Recurrence: non-recurrent Qualified Code(s): H65.01 - Acute serous otitis media, right ear Patient Disposition: Home Condition: Stable Instructions: Fluid In The Ear (Serous Otitis Media) (ED) Additional Instructions: Your exam shows a collection of fluid behind your right ear drum without evidence of infection. Please start a steroid nasal spray such as Flonase. Take the Medrol Dosepak as directed. Follow-up with your PCP with any additional concerns. Your blood pressure was elevated above 120/80 today at Urgent Care. This puts you above the threshold for follow up. Please schedule a followup visit with your personal physician as soon as possible, for further evaluation and treatment. Even blood pressure exceeding 120/80 may indicate pre-hypertension. Patient Language: Andorran Prescriptions: New prednisone 20 mg tablet 20 mg PO DAILY 5 Days Qty: 5 0RF No Action tamsulosin 0.4 mg capsule 0.4 mg PO DAILY amlodipine 10 mg tablet 10 mg PO DAILY pantoprazole 40 mg tablet,delayed release (DR/EC) 40 mg PO DAILY finasteride 5 mg tablet 5 mg PO DAILY Follow-up/Referrals: Noam Quispe MD [Primary Care Provider, Internal Medicine] Time of Disposition: 11:34
== END 2025-02-26 11:39 | disposition home or self-care (01) ==
PROVIDERS: Emergency Provider Nurse Practitioner; PCP Internal Medicine
DX: H65.01 Acute serous otitis media, right ear (principal); N40.0 Benign prostatic hyperplasia without lower urinary tract symptoms; I10 Essential (primary) hypertension; K21.9 Gastro-esophageal reflux disease without esophagitis
CPT/HCPCS: 99213; G0463

== ENCOUNTER 2025-05-26 09:00 | Outpatient (CLI) | payer MEDICARE, OTHER, SELFPAY ==
[2025-05-26 09:22] LABS: Hematocrit 44.1 % (37.0-46.0); Hemoglobin 14.5 g/dL (12.4-15.3); Mean Corpuscular HGB Conc 32.9 g/dL (32-36); Mean Corpuscular Hemoglobin 30.1 pg (27.0-31.0); Mean Corpuscular Volume 91.5 fL (78.0-102.0); Platelet Count Result 149 K/mm3 (150-420); Red Blood Count 4.82 M/mm3 (4.70-6.10); White Blood Count 5.5 K/mm3 (4.8-10.8)
[2025-05-26 09:25] LABS: Add Urine Microscopic? NO; Appearance Urine Clear (Clear); Glucose Urine UA Negative (Negative); Leukocyte Esterase Ur Negative (Negative); Nitrate Urine Negative (Negative); Specific Grav Ur <= 1.005 (1.010-1.020)
[2025-05-26 10:02] LABS: Influenza A QL RT-PCR Negative (Negative); Influenza B QL RT-PCR Negative (Negative); RSV RNA, RT-PCR Negative (Negative); SARS-CoV-2 RNA PCR Negative (Negative)
[2025-05-26 10:12] LABS: Alanine Aminotransferase 31 U/L (6-50); Albumin Level 4.5 g/dL (3.5-5.1); Alkaline Phosphatase 86 U/L (38-126); Anion Gap 9 mmol/L (4-12); Aspartate Amino Transferase 37 U/L (17-59); Bilirubin,Total 0.6 mg/dL (0.2-1.3); Blood Urea Nitrogen 10 mg/dL (9-20); CRP < 0.5 mg/dL (<1.0); Calcium 9.1 mg/dL (8.4-10.2); Carbon Dioxide 27 mmol/L (22-30); Chloride 107 mmol/L (98-107); Cholesterol 231 mg/dL (0-200); Estimated Glomerular Filt Rate > 60; Glucose 91 mg/dL (65-110); HDL Direct 43 mg/dL; Magnesium 2.1 mg/dL (1.6-2.3); Osmolality Calculated 295 mOsm/kg (285-295); Potassium 4.3 mmol/L (3.4-5.0); Sodium 143 mmol/L (137-145); Total Protein 7.2 g/dL (6.3-8.2); Triglycerides 317 mg/dL (<150)
[2025-05-26 10:25] LABS: Free T3 3.08 pg/mL (2.18-3.98); Free T4 Free Thyroxine 1.08 ng/dL (0.78-2.19)
[2025-05-26 10:39] LABS: Prostate Specific Antigen 1.3 ng/mL (< OR = 4.0); Thyroid Stimulating Hormone 1.590 uIU/mL (0.465-4.680)
== END 2025-05-26 09:01 | disposition home or self-care (01) ==
PROVIDERS: PCP Internal Medicine; Visit Provider Internal Medicine
DX: R53.83 Other fatigue (principal); J06.9 Acute upper respiratory infection, unspecified; Z12.5 Encounter for screening for malignant neoplasm of prostate; E78.5 Hyperlipidemia, unspecified
CPT/HCPCS: 36415; 80053; 80061; 81003; 83735; 84153; 84439; 84443; 84481; 85027; 86140; 87637; G0103